=== PATIENT | female | born 1955 | race Caucasian/White ===

== ENCOUNTER 2018-02-11 11:26 | Emergency (ER) | payer OTHER ==
[2018-02-11 12:16] LABS: BASOPHILS 0.5 % (0-2); HEMATOCRIT 39.4 % (36.0-48.0); HEMOGLOBIN 13.1 g/dL (12-16); LYMPHOCYTES 24.6 % (15-50); MCH 29.8 pg (26.0-34.0); MCHC 33.2 g/dL (31.0-37.0); MCV 89.5 fL (80.0-100.0); MEAN PLATELET VOLUME 11.5 fL (7.4-10.4); MONOCYTES 6.2 % (2-11); NEUTROPHILS 65.7 % (40-80); PLATELET COUNT 214 10x3/uL (130-400); WBC 5.7 10x3/uL (4.8-10.8)
[2018-02-11 12:37] LABS: ALBUMIN 3.7 g/dL (3.4-5.0); ALKALINE PHOSPHATASE 58 U/L (46-116); ALT (SGPT) 22 U/L (10-68); BILIRUBIN - TOTAL 0.32 mg/dL (0.2-1.3); CALC OSMOLALITY 277 mosm/kg (275-300); CALCIUM 8.3 mg/dL (8.5-10.1); CARBON DIOXIDE 28.5 mmol/L (21.0-32.0); CHLORIDE - SERUM 104 mmol/L (98-107); CREATININE - SERUM 0.8 mg/dL (0.6-1.3); GLUCOSE 86 mg/dL (74-106); POTASSIUM - SERUM 4.3 mmol/L (3.5-5.1); PROTEIN - SERUM 7.1 g/dL (6.4-8.2); SODIUM 139 mmol/L (136-145); UREA NITROGEN 16 mg/dL (7-18); eGFR NON AFRICAN AMERICAN 77 mL/min (90-120)
[2018-02-11 12:48] LABS: CKMB 0.9 U/L (0.0-3.6); CREATINE KINASE 69 UL (21-215)
[2018-02-11 12:50] LABS: TROPONIN-I < 0.017 ng/mL (0.000-0.060)
== END 2018-02-11 13:35 | disposition left against medical advice (07) ==
LOC: D.ER 11:26
PROVIDERS: Emergency Medicine
DX: R07.9 Chest pain, unspecified (principal)